=== PATIENT | female | born 1995 | race Caucasian/White ===

== ENCOUNTER 2017-11-16 13:03 | Emergency (ER) | payer SELFPAY ==
[2017-11-16 13:10] VITALS: BP 102/63
--- NOTE | 2017-11-16 15:47 | ER Document Report ---
ED General - General Chief Complaint: Abscess Stated Complaint: POSSIBLE ABSCESS Time Seen by Provider: 11/16/17 14:26 TRAVEL OUTSIDE OF THE [place] IN LAST 30 DAYS: No - HPI Notes: 22-year-old female with history of previous abscess who presents with possible pilonidal cyst and abscess. She describes gradual onset and lasting 1/2-2 days of increasing pain and redness at the superior portion of her gregg cleft. No history of abscess in this location before. Nonradiating, achy throbbing and severe. No fever. Nausea but no vomiting. No other modifying factors, no other associated symptoms, no other provocative or palliative factors. Past Medical History - Social History Smoking Status: Current Every Day Smoker Chew tobacco use (# tins/day): No Frequency of alcohol use: None Drug Abuse: None Family History: Reviewed & Not Pertinent Patient has suicidal ideation: No Patient has homicidal ideation: No - Medical History Medical History: Other - Includes recurrent abscesses Renal/ Medical History: Denies: Hx Peritoneal Dialysis Review of Systems - Review of Systems Notes: ROS as in history of present illness otherwise negative Physical Exam - Vital signs Vitals: Temp Pulse Resp BP Pulse Ox 99.2 F 97 16 102/63 99 11/16/17 13:08 11/16/17 13:08 11/16/17 13:08 11/16/17 13:08 11/16/17 13:08 - Notes Notes: General: Well devloped, no acute distress. HEENT: Normocephalic, atraumatic. Pupils equal round reactive to light. Mucosa moist. No JVD. Chest: No trauma, normal excursion. Respiratory: Good air exchange, normal excursion. Cardiac: Regular rhythm Abdomen: Soft, benign. Nondistended. Back: No asymmetry or gross abnormality. Motor: Grossly normal power and tone. Neurologic: Alert, nonfocal. Vascular: Well perfused Skin: No petechiae or purpura Buttocks: There is an area of induration about the superior cleft approximately 3 x 4 cm, right side much greater than left. There is associated erythema over the spot. Tenderness is noted. Course - Re-evaluation Re-evalutation: 11/16/17 16:47 Well-appearing female with the affirmation symptoms, likely pilonidal cyst with subsequent abscess formation. Is nontoxic in appearance, I see no indication for laboratory evaluation. Would proceed with incision and drainage, she is referred to her existing surgeon as an outpatient. Procedure note note: Incision and drainage Informed consent was obtained, risks and benefits are discussed. After appropriate preparation, the area is anesthetized with 1% lidocaine. An 3 cm incision is made with return of purulent material. Area is explored, and no loculations are found. Irrigated. The wound is packed. No complications. - Vital Signs Vital signs: Temp Pulse Resp BP Pulse Ox 99.2 F 97 16 102/63 99 11/16/17 13:08 11/16/17 13:08 11/16/17 13:08 11/16/17 13:08 11/16/17 13:08 Discharge - Discharge Condition: Good Disposition: HOME, SELF-CARE Instructions: Abscess ([facility]), Post Incision and Drainage Prescriptions: Hydrocodone Bit/Acetaminophen [Hydrocodon-Acetaminophen 5-325] 1 each PO Q4 7 Days #10 tablet Forms: Return to Work
== END 2017-11-16 16:25 | disposition home or self-care (01) ==
LOC: ER 13:03
PROC: 0H98XZZ Drainage of Buttock Skin, External Approach (ICD-10-PCS; principal; 2017-11-16)
DX: L05.01 Pilonidal cyst with abscess (principal); F17.200 Nicotine dependence, unspecified, uncomplicated
CPT/HCPCS: 10080; 99283; A6266

== ENCOUNTER → 2018-11-15 | Outpatient (CLI) | payer BC ==
[2018-11-15 17:17] LABS: HEMATOCRIT 36.5 % (36.0-47.0); HEMOGLOBIN 12.1 g/dL (12.0-15.5); MEAN CORPUSCULAR HEMOGLOBIN 22.4 pg (27.0-33.4); MEAN CORPUSCULAR HGB CONC 33.2 g/dL (32.0-36.0); MEAN CORPUSCULAR VOLUME 68 fl (80-97); PLATELET COUNT 240 10^3/uL (150-450); RED BLOOD COUNT 5.41 10^6/uL (3.72-5.28); RED CELL DISTRIBUTION WIDTH 15.1 % (11.5-14.0); WHITE BLOOD COUNT 8.6 10^3/uL (4.0-10.5)
[2018-11-15 17:42] LABS: ANION GAP 9 (5-19); BLOOD UREA NITROGEN 9 mg/dL (7-20); CALCIUM 9.1 mg/dL (8.4-10.2); CARBON DIOXIDE 24 mmol/L (22-30); CHLORIDE 104 mmol/L (98-107); GLUCOSE 84 mg/dL (75-110); SODIUM 137.2 mmol/L (137-145)
== END ==
LOC: OD 16:25
PROVIDERS: ATTEND Surgery
DX: L72.3 Sebaceous cyst (principal)
CPT/HCPCS: 36415; 80048; 85027; 87070